=== PATIENT | male | born 1940 | race American Indian/Alaskan Native ===

== ENCOUNTER 2018-05-06 11:41 | Inpatient (IN) | payer MEDICARE, OTHER ==
[~2018-05-06] VITALS: Ht 175.3 cm; Wt 92.3 kg
[2018-05-06] MEDS ORDERED: normal saline 1000ML IV soln IVB ONE (12:00)
[2018-05-06 12:20] LABS: CLARITY,URINE CLOUDY (Clear); GLUCOSE, URINE NEGATIVE (Neg); KETONES,URINE 15 mg/dl (Neg); LEUKOCYTE ESTERASE ,URINE MODERATE (Neg); NITRITES, URINE NEGATIVE (Neg); OCCULT BLOOD,URINE SMALL (Neg); PROTEIN,URINE 100 mg/dl (Neg)
[2018-05-06 12:32] LABS: URINE AMPHETAMINE SCREEN NEGATIVE (Neg); URINE BARBITUATE SCREEN NEGATIVE (Neg); URINE BENZODIAZEPINES SCREEN POSITIVE (Neg); URINE CANNABINOID SCREEN NEGATIVE (Neg); URINE COCAINE SCREEN NEGATIVE (Neg); URINE METHADONE SCREEN NEGATIVE (Neg); URINE OPIATE SCREEN POSITIVE (Neg); URINE PHENCYCLIDINE SCREEN NEGATIVE (Neg)
[2018-05-06 12:43] LABS: BASOPHILS # (AUTO) 0.1 X10'3 (0-0.2); BASOPHILS % (AUTO) 0.5 % (0-1); EOSINOPHILS % (AUTO) 0.3 % (0-6); HEMATOCRIT 48.3 % (42.0-52.0); HEMOGLOBIN 16.5 g/dl (14.0-17.9); LYMPHOCYTES # (AUTO) 1.1 X10'3 (1.1-4.8); LYMPHOCYTES % (AUTO) 7.8 % (21-51); MEAN CORPUSCULAR HEMOGLOBIN 32.3 PG (27.0-31.0); MEAN CORPUSCULAR HGB CONC 34.1 % (33.0-36.5); MEAN CORPUSCULAR VOLUME 94.8 FL (78-98); MONOCYTES # (AUTO) 0.7 X10'3 (0-0.9); NEUTROPHILS # (AUTO) 11.7 X10'3 (1.8-7.7); NEUTROPHILS % (AUTO) 86.4 % (42-75); PLATELET COUNT 319 X10'3 (140-440); RED CELL DISTRIBUTION WIDTH 14.7 % (11.5-14.5); WHITE BLOOD COUNT 13.6 X10'3 (4.5-11.0)
[2018-05-06 12:57] LABS: UA COLLECTION TYPE FOLEY CATH
[2018-05-06 12:58] LABS: INR 1.2 INR; PARTIAL THROMBOPLASTIN TIME 26 SECONDS (22-32)
[2018-05-06 12:58] LABS: COLOR,URINE DARK YELLOW (Yellow)
[2018-05-06 13:07] LABS: AMMONIA < 10 UMOL/L (11-32); LACTIC SEPSIS 2.3 MMOL/L (0.4-2.0)
[2018-05-06] MEDS ORDERED: naloxone 2mg/2ml inj IV STA (13:08)
[2018-05-06 13:12] LABS: ALANINE AMINOTRANSFERASE 45 U/L (12-78); ALBUMIN 3.3 G/DL (3.4-5.0); ALBUMIN/GLOBULIN RATIO 0.8 (1.1-1.5); ALKALINE PHOSPHATASE 62 IU/L (46-116); ANION GAP 10 (8-16); ASPARTATE AMINO TRANSFERASE 52 U/L (10-37); BILIRUBIN,TOTAL 1.2 MG/DL (0.1-1.0); BLOOD UREA NITROGEN 21 MG/DL (7-18); BUN/CREATININE RATIO 19.8 (5.4-32.0); CALCIUM 9.2 MG/DL (8.5-10.1); CHLORIDE 105 MMOL/L (99-107); CREATINE KINASE 845 U/L (39-308); CREATININE 1.06 MG/DL (0.60-1.10); ETHANOL < 0.010 GM/DL (0.0-0.010); GLUCOSE 129 MG/DL (70-104); SODIUM 143 MMOL/L (135-145); TOTAL PROTEIN 7.2 G/DL (6.4-8.2); eGFR 67 ML/MIN
[2018-05-06 13:13] LABS: ACETAMINOPHEN < 2.0 UG/ML (10-30)
[2018-05-06 13:14] LABS: POTASSIUM 2.7 MMOL/L (3.5-5.1)
[2018-05-06 13:25] LABS: BACTERIA,URINE 4+ /HPF (Neg)
[2018-05-06 13:26] LABS: SQUAMOUS EPITHELIAL CELL,UR NONE SEEN /LPF (FEW)
[2018-05-06] MEDS: potassium 10mEq/100ml NS w/LIDOcaine (10mg/bag) IV SCH ×2 (13:49→14:49)
[2018-05-06] MEDS ORDERED: CefTRIAXone 2gm/D5W 50ml 50 ML IV ONE (14:35)
[2018-05-06] MEDS ORDERED: labetalol 20mg/4ml (5mg/ml) syringe IV PRN (14:40)
[2018-05-06] MEDS ORDERED: cloNIDine 0.2 MG/24 HR patch (7 day patch) TD ONE (15:30)
[2018-05-06] MEDS ORDERED: CLON0.1T PO (16:26)
[2018-05-06] MEDS ORDERED: GABA-530 PO (16:26)
[2018-05-06] MEDS ORDERED: HYDR25TA4 PO (16:26)
[2018-05-06 16:27] LABS: ALANINE AMINOTRANSFERASE 52 U/L (12-78); ALBUMIN 2.7 G/DL (3.4-5.0); ALBUMIN/GLOBULIN RATIO 0.8 (1.1-1.5); ALKALINE PHOSPHATASE 49 IU/L (46-116); ANION GAP 8 (8-16); ASPARTATE AMINO TRANSFERASE 55 U/L (10-37); BILIRUBIN,TOTAL 0.9 MG/DL (0.1-1.0); BLOOD UREA NITROGEN 17 MG/DL (7-18); BUN/CREATININE RATIO 20.2 (5.4-32.0); CALCIUM 8.1 MG/DL (8.5-10.1); CHLORIDE 108 MMOL/L (99-107); CREATINE KINASE 836 U/L (39-308); CREATININE 0.84 MG/DL (0.60-1.10); GLUCOSE 125 MG/DL (70-104); SODIUM 143 MMOL/L (135-145); TOTAL CARBON DIOXIDE 26.8 MMOL/L (24-32); TOTAL PROTEIN 6.3 G/DL (6.4-8.2); eGFR 88 ML/MIN
[2018-05-06 16:30] LABS: POTASSIUM 2.8 MMOL/L (3.5-5.1)
[2018-05-06] MEDS ORDERED: SULI150T50 PO (16:35)
[2018-05-06] MEDS ORDERED: CHOL2000 PO (16:35)
[2018-05-06] MEDS ORDERED: POTA10CA44 PO (16:35)
[2018-05-06] MEDS ORDERED: DOCU-20 PO (16:35)
[2018-05-06] MEDS ORDERED: RAMI10CA69 PO (16:36)
[2018-05-06] MEDS ORDERED: MAGN500T2 PO (16:38)
[2018-05-06] MEDS ORDERED: KETO60VI28 IM (16:39)
[2018-05-06] MEDS ORDERED: KETO30VI IM (16:43)
[2018-05-06] MEDS ORDERED: mag hydrox/Alum hydrox/simeth 30ml oral suspension PO PRN (17:10)
[2018-05-06] MEDS ORDERED: magnesium hydroxide 30ml (MOM) UD suspension PO PRN (17:10)
[2018-05-06] MEDS ORDERED: ondansetron/PF 4mg/2ml inj IV PRN (17:10)
[2018-05-06] MEDS: normal saline 1000ml 1,000 ML IV SCH (17:24)
[2018-05-06] MEDS ORDERED: potassium Cl 20 mEq SR tablet PO PRN (17:40)
[2018-05-06] MEDS ORDERED: potassium Cl 40MEQ/NS 500ml 500 ML IV PRN ×2 (17:40)
[2018-05-06] MEDS: cloNIDine 0.1 mg tablet PO SCH (20:00)
[2018-05-06] MEDS: docusate sod 100mg capsule PO SCH (20:13)
[2018-05-06] MEDS: magnesium oxide 400mg tablet PO SCH (20:13)
[2018-05-06] MEDS: heparin, porcine 5000 units/ml vial SQ SCH (20:14)
[2018-05-06 20:30] VITALS: BP 191/92
[2018-05-06] MEDS: hydrALAZINE 20mg/ml inj. IV PRN (20:55)
[2018-05-06] MEDS ORDERED: MAGNESIUM OXIDE PO SCH (21:00)
[2018-05-06 23:00] VITALS: BP 189/82
[2018-05-07 00:01] VITALS: BP 137/77
[2018-05-07] MEDS: normal saline 1000ml 1,000 ML IV SCH ×4 (00:56→19:34)
[2018-05-07 03:00] VITALS: BP 138/71
[2018-05-07 05:17] LABS: BASOPHILS % (AUTO) 0.4 % (0-1); EOSINOPHILS # (AUTO) 0.2 X10'3 (0-0.9); EOSINOPHILS % (AUTO) 2.1 % (0-6); HEMATOCRIT 42.1 % (42.0-52.0); HEMOGLOBIN 14.5 g/dl (14.0-17.9); LYMPHOCYTES # (AUTO) 0.8 X10'3 (1.1-4.8); LYMPHOCYTES % (AUTO) 7.2 % (21-51); MEAN CORPUSCULAR HEMOGLOBIN 32.5 PG (27.0-31.0); MEAN CORPUSCULAR HGB CONC 34.4 % (33.0-36.5); MEAN CORPUSCULAR VOLUME 94.6 FL (78-98); MEAN PLATELET VOLUME 8.4 FL (7.4-10.4); MONOCYTES # (AUTO) 0.5 X10'3 (0-0.9); MONOCYTES % (AUTO) 4.2 % (2-12); NEUTROPHILS # (AUTO) 9.8 X10'3 (1.8-7.7); NEUTROPHILS % (AUTO) 86.1 % (42-75); PLATELET COUNT 282 X10'3 (140-440); RED BLOOD COUNT 4.45 X10'6 (4.70-6.10); RED CELL DISTRIBUTION WIDTH 14.6 % (11.5-14.5); WHITE BLOOD COUNT 11.3 X10'3 (4.5-11.0)
[2018-05-07 05:40] LABS: ALBUMIN 2.5 G/DL (3.4-5.0); ANION GAP 11 (8-16); BLOOD UREA NITROGEN 14 MG/DL (7-18); BUN/CREATININE RATIO 18.9 (5.4-32.0); CHLORIDE 109 MMOL/L (99-107); CREATININE 0.74 MG/DL (0.60-1.10); GLUCOSE 111 MG/DL (70-104); SODIUM 145 MMOL/L (135-145); TOTAL CARBON DIOXIDE 24.8 MMOL/L (24-32); eGFR > 90 ML/MIN
[2018-05-07 06:00] VITALS: BP 136/71
[2018-05-07 07:41] LABS: POTASSIUM 2.4 MMOL/L (3.5-5.1)
[2018-05-07] MEDS ORDERED: CHOLECALCIFEROL PO SCH (08:00)
[2018-05-07] MEDS ORDERED: RAMIPRIL PO SCH (08:00)
[2018-05-07] MEDS: HYDROchlorothiazide 25mg tablet PO SCH (08:00)
[2018-05-07] MEDS: potassium chloride 10mEq ER tablet PO SCH (08:00)
[2018-05-07] MEDS: docusate sod 100mg capsule PO SCH ×2 (09:00→20:31)
[2018-05-07] MEDS: lisinopril 20mg tablet PO SCH (09:01)
[2018-05-07] MEDS: vitamin D (cholecalciferol) 1,000 unit tablet PO SCH (09:01)
[2018-05-07] MEDS: heparin, porcine 5000 units/ml vial SQ SCH ×2 (09:02→20:31)
[2018-05-07] MEDS: cloNIDine 0.1 mg tablet PO SCH ×2 (09:02→20:00)
[2018-05-07] MEDS: cefTRIAXone 1g/NS 100ml IVPB 100 ML IV SCH (09:20)
[2018-05-07] MEDS: LIDOcaine 1% 30ml vial 5 ML in potassium Cl 40MEQ/NS 500ml 500 ML IV PRN ×2 (10:00→16:46)
[2018-05-07 11:00] VITALS: BP 129/63
[2018-05-07] MEDS: vancomycin inj 1,250 MG in normal saline 250ml IV soln 250 ML IV SCH (14:18)
[2018-05-07 15:00] VITALS: BP 152/62
[2018-05-07 15:14] LABS: HEMOGLOBIN A1C 5.9 % (4.5-6.2)
[2018-05-07] MEDS ORDERED: pneumococcal 23-VAL P-sac vacc 25 mcg/0.5ml vial IMVAC ONE (16:20)
[2018-05-07] MEDS: emollient combination-Eucerin 250 ML LOTION TP SCH (16:55)
[2018-05-07] MEDS: magnesium oxide 400mg tablet PO SCH (20:31)
[2018-05-07 22:00] VITALS: BP 163/71
[2018-05-08] VITALS (7 sets, daily range): BP systolic 125–178; BP diastolic 66–82
[2018-05-08] MEDS: vancomycin inj 1,250 MG in normal saline 250ml IV soln 250 ML IV SCH ×2 (01:00→12:39)
[2018-05-08] MEDS: normal saline 1000ml 1,000 ML IV SCH ×3 (03:15→20:30)
[2018-05-08] MEDS: acetaminophen 325mg tablet PO PRN (03:23)
[2018-05-08 05:39] LABS: BASOPHILS # (AUTO) 0.1 X10'3 (0-0.2); BASOPHILS % (AUTO) 0.7 % (0-1); EOSINOPHILS # (AUTO) 0.4 X10'3 (0-0.9); EOSINOPHILS % (AUTO) 5.2 % (0-6); LYMPHOCYTES # (AUTO) 1.5 X10'3 (1.1-4.8); LYMPHOCYTES % (AUTO) 17.2 % (21-51); MEAN CORPUSCULAR HEMOGLOBIN 32.5 PG (27.0-31.0); MEAN CORPUSCULAR HGB CONC 34.3 % (33.0-36.5); MEAN PLATELET VOLUME 8.4 FL (7.4-10.4); MONOCYTES # (AUTO) 0.6 X10'3 (0-0.9); MONOCYTES % (AUTO) 6.5 % (2-12); NEUTROPHILS # (AUTO) 6.1 X10'3 (1.8-7.7); NEUTROPHILS % (AUTO) 70.4 % (42-75); PLATELET COUNT 217 X10'3 (140-440); RED CELL DISTRIBUTION WIDTH 14.6 % (11.5-14.5); WHITE BLOOD COUNT 8.6 X10'3 (4.5-11.0)
[2018-05-08 05:50] LABS: ALBUMIN 2.2 G/DL (3.4-5.0); ANION GAP 7 (8-16); BLOOD UREA NITROGEN 13 MG/DL (7-18); BUN/CREATININE RATIO 18.1 (5.4-32.0); CALCIUM 8.2 MG/DL (8.5-10.1); CHLORIDE 109 MMOL/L (99-107); CREATININE 0.72 MG/DL (0.60-1.10); GLUCOSE 82 MG/DL (70-104); SODIUM 141 MMOL/L (135-145); TOTAL CARBON DIOXIDE 25.4 MMOL/L (24-32); eGFR > 90 ML/MIN
[2018-05-08] MEDS: emollient combination-Eucerin 250 ML LOTION TP SCH (08:00)
[2018-05-08] MEDS: potassium chloride 10mEq ER tablet PO SCH (08:12)
[2018-05-08] MEDS: docusate sod 100mg capsule PO SCH ×2 (08:12→20:31)
[2018-05-08] MEDS: potassium Cl 20 mEq SR tablet PO PRN ×3 (08:12→16:39)
[2018-05-08] MEDS: HYDROchlorothiazide 25mg tablet PO SCH (08:13)
[2018-05-08] MEDS: cloNIDine 0.1 mg tablet PO SCH (08:13)
[2018-05-08] MEDS: lisinopril 20mg tablet PO SCH (08:13)
[2018-05-08] MEDS: cefTRIAXone 1g/NS 100ml IVPB 100 ML IV SCH (08:14)
[2018-05-08] MEDS: vitamin D (cholecalciferol) 1,000 unit tablet PO SCH (08:14)
[2018-05-08] MEDS: heparin, porcine 5000 units/ml vial SQ SCH ×2 (08:16→20:31)
[2018-05-08] MEDS: magnesium oxide 400mg tablet PO SCH (20:31)
[2018-05-08] MEDS: hydrALAZINE 20mg/ml inj. IV PRN (22:35)
[2018-05-09] MEDS ORDERED: VANCOMYCIN LEVEL IV ONE (00:30)
[2018-05-09] MEDS: vancomycin inj 1,250 MG in normal saline 250ml IV soln 250 ML IV SCH (01:12)
[2018-05-09 01:15] LABS: ALBUMIN 2.4 G/DL (3.4-5.0); ANION GAP 9 (8-16); BASOPHILS # (AUTO) 0.1 X10'3 (0-0.2); BASOPHILS % (AUTO) 0.8 % (0-1); BLOOD UREA NITROGEN 10 MG/DL (7-18); BUN/CREATININE RATIO 16.1 (5.4-32.0); CALCIUM 8.2 MG/DL (8.5-10.1); CHLORIDE 106 MMOL/L (99-107); CREATININE 0.62 MG/DL (0.60-1.10); EOSINOPHILS # (AUTO) 0.3 X10'3 (0-0.9); EOSINOPHILS % (AUTO) 3.6 % (0-6); GLUCOSE 89 MG/DL (70-104); HEMATOCRIT 41.9 % (42.0-52.0); HEMOGLOBIN 14.2 g/dl (14.0-17.9); LYMPHOCYTES # (AUTO) 1.5 X10'3 (1.1-4.8); LYMPHOCYTES % (AUTO) 17.9 % (21-51); MEAN CORPUSCULAR HEMOGLOBIN 32.5 PG (27.0-31.0); MEAN CORPUSCULAR HGB CONC 33.8 % (33.0-36.5); MEAN CORPUSCULAR VOLUME 96.1 FL (78-98); MEAN PLATELET VOLUME 9.1 FL (7.4-10.4); MONOCYTES # (AUTO) 0.5 X10'3 (0-0.9); MONOCYTES % (AUTO) 5.7 % (2-12); NEUTROPHILS # (AUTO) 6.2 X10'3 (1.8-7.7); PLATELET COUNT 228 X10'3 (140-440); POTASSIUM 3.8 MMOL/L (3.5-5.1); RED BLOOD COUNT 4.36 X10'6 (4.70-6.10); RED CELL DISTRIBUTION WIDTH 13.8 % (11.5-14.5); SODIUM 139 MMOL/L (135-145); TOTAL CARBON DIOXIDE 24.1 MMOL/L (24-32); VANCOMYCIN,TROUGH 15.3 UG/ML (6.0-14.0); WHITE BLOOD COUNT 8.6 X10'3 (4.5-11.0); eGFR > 90 ML/MIN
[2018-05-09 01:49] LABS: MAGNESIUM 1.3 MG/DL (1.5-2.4)
[2018-05-09] MEDS ORDERED: magnesium 4gm in 100ml NS 100 ML IV PRN (02:05)
[2018-05-09] MEDS: magnesium Cl slow-release 64mg tablet PO PRN ×2 (02:48→13:30)
[2018-05-09 03:00] VITALS: BP 134/68
[2018-05-09] MEDS: normal saline 1000ml 1,000 ML IV SCH ×3 (05:26→20:43)
[2018-05-09 07:10] VITALS: BP 148/73
[2018-05-09] MEDS: cefTRIAXone 1g/NS 100ml IVPB 100 ML IV SCH (08:40)
[2018-05-09] MEDS: lisinopril 20mg tablet PO SCH (08:40)
[2018-05-09] MEDS: potassium chloride 10mEq ER tablet PO SCH (08:40)
[2018-05-09] MEDS: docusate sod 100mg capsule PO SCH ×2 (08:40→20:44)
[2018-05-09] MEDS: emollient combination-Eucerin 250 ML LOTION TP SCH (08:41)
[2018-05-09] MEDS: heparin, porcine 5000 units/ml vial SQ SCH ×2 (08:42→20:45)
[2018-05-09 12:56] VITALS: BP 167/76
[2018-05-09] MEDS: hydrALAZINE 20mg/ml inj. IV PRN (13:30)
[2018-05-09 15:00] VITALS: BP 152/76
[2018-05-09] MEDS: penicillin G potassium inj 4,000,000 UNIT in normal saline 100ml IV soln 100 ML IV SCH ×2 (17:16→20:43)
[2018-05-09 18:00] VITALS: BP 172/90
[2018-05-09] MEDS: lactobacillus rhamnosus 10,000 MMU CELLS/CAPSULE PO SCH (20:44)
[2018-05-09] MEDS: magnesium oxide 400mg tablet PO SCH (20:44)
[2018-05-09 22:00] VITALS: BP 175/80
[2018-05-10] MEDS: penicillin G potassium inj 4,000,000 UNIT in normal saline 100ml IV soln 100 ML IV SCH ×6 (00:58→19:24)
[2018-05-10 02:00] VITALS: BP 171/83
[2018-05-10] MEDS: hydrALAZINE 20mg/ml inj. IV PRN (02:49)
[2018-05-10 06:00] VITALS: BP 165/88
[2018-05-10 06:34] LABS: ALBUMIN 2.7 G/DL (3.4-5.0); ANION GAP 11 (8-16); BLOOD UREA NITROGEN 6 MG/DL (7-18); BUN/CREATININE RATIO 9.1 (5.4-32.0); CALCIUM 8.7 MG/DL (8.5-10.1); CHLORIDE 104 MMOL/L (99-107); CREATININE 0.66 MG/DL (0.60-1.10); GLUCOSE 88 MG/DL (70-104); POTASSIUM 3.4 MMOL/L (3.5-5.1); SODIUM 139 MMOL/L (135-145); eGFR > 90 ML/MIN
[2018-05-10 06:39] LABS: BASOPHILS % (AUTO) 0.4 % (0-1); EOSINOPHILS # (AUTO) 0.2 X10'3 (0-0.9); EOSINOPHILS % (AUTO) 2.8 % (0-6); HEMATOCRIT 41.8 % (42.0-52.0); HEMOGLOBIN 14.3 g/dl (14.0-17.9); LYMPHOCYTES # (AUTO) 1.4 X10'3 (1.1-4.8); LYMPHOCYTES % (AUTO) 16.5 % (21-51); MEAN CORPUSCULAR HEMOGLOBIN 32.4 PG (27.0-31.0); MEAN CORPUSCULAR HGB CONC 34.2 % (33.0-36.5); MEAN CORPUSCULAR VOLUME 94.6 FL (78-98); MEAN PLATELET VOLUME 9.3 FL (7.4-10.4); MONOCYTES # (AUTO) 0.7 X10'3 (0-0.9); MONOCYTES % (AUTO) 8.5 % (2-12); NEUTROPHILS # (AUTO) 6.2 X10'3 (1.8-7.7); NEUTROPHILS % (AUTO) 71.8 % (42-75); PLATELET COUNT 241 X10'3 (140-440); RED BLOOD COUNT 4.42 X10'6 (4.70-6.10); RED CELL DISTRIBUTION WIDTH 14.1 % (11.5-14.5); WHITE BLOOD COUNT 8.6 X10'3 (4.5-11.0)
[2018-05-10 07:53] LABS: MAGNESIUM 1.3 MG/DL (1.5-2.4)
[2018-05-10] MEDS: emollient combination-Eucerin 250 ML LOTION TP SCH (08:00)
[2018-05-10] MEDS: docusate sod 100mg capsule PO SCH ×2 (08:00→19:30)
[2018-05-10] MEDS ORDERED: potassium Cl 20 mEq SR tablet PO PRN (09:10)
[2018-05-10] MEDS ORDERED: potassium Cl 40MEQ/NS 500ml 500 ML IV PRN ×2 (09:10)
[2018-05-10] MEDS: lactobacillus rhamnosus 10,000 MMU CELLS/CAPSULE PO SCH ×2 (09:10→19:29)
[2018-05-10] MEDS: lisinopril 20mg tablet PO SCH (09:10)
[2018-05-10] MEDS: potassium chloride 10mEq ER tablet PO SCH (09:10)
[2018-05-10] MEDS: magnesium Cl slow-release 64mg tablet PO PRN (09:10)
[2018-05-10] MEDS: potassium Cl 20 mEq SR tablet PO PRN ×2 (09:11→19:28)
[2018-05-10] MEDS: heparin, porcine 5000 units/ml vial SQ SCH ×2 (09:14→19:35)
[2018-05-10 11:00] VITALS: BP 151/80
[2018-05-10] MEDS: normal saline 1000ml 1,000 ML IV SCH ×2 (11:26→21:26)
[2018-05-10 15:00] VITALS: BP 154/86
[2018-05-10 19:00] VITALS: BP 172/89
[2018-05-10] MEDS: magnesium oxide 400mg tablet PO SCH (19:29)
[2018-05-10 23:00] VITALS: BP 172/89
[2018-05-11] VITALS (7 sets, daily range): BP systolic 145–186; BP diastolic 75–96
[2018-05-11] MEDS: penicillin G potassium inj 4,000,000 UNIT in normal saline 100ml IV soln 100 ML IV SCH ×6 (00:11→21:18)
[2018-05-11] MEDS: potassium Cl 20 mEq SR tablet PO PRN (00:12)
[2018-05-11 06:29] LABS: BASOPHILS % (AUTO) 0.6 % (0-1); EOSINOPHILS # (AUTO) 0.4 X10'3 (0-0.9); EOSINOPHILS % (AUTO) 5.2 % (0-6); HEMOGLOBIN 14.1 g/dl (14.0-17.9); LYMPHOCYTES # (AUTO) 1.7 X10'3 (1.1-4.8); MEAN CORPUSCULAR HEMOGLOBIN 32.7 PG (27.0-31.0); MEAN CORPUSCULAR HGB CONC 34.4 % (33.0-36.5); MEAN CORPUSCULAR VOLUME 94.9 FL (78-98); MEAN PLATELET VOLUME 9.1 FL (7.4-10.4); MONOCYTES # (AUTO) 0.7 X10'3 (0-0.9); MONOCYTES % (AUTO) 8.7 % (2-12); NEUTROPHILS # (AUTO) 5.5 X10'3 (1.8-7.7); NEUTROPHILS % (AUTO) 65.5 % (42-75); PLATELET COUNT 243 X10'3 (140-440); RED BLOOD COUNT 4.32 X10'6 (4.70-6.10); RED CELL DISTRIBUTION WIDTH 14.2 % (11.5-14.5); WHITE BLOOD COUNT 8.3 X10'3 (4.5-11.0)
[2018-05-11 07:08] LABS: ALBUMIN 2.7 G/DL (3.4-5.0); ANION GAP 9 (8-16); BLOOD UREA NITROGEN 6 MG/DL (7-18); BUN/CREATININE RATIO 9.4 (5.4-32.0); CALCIUM 8.8 MG/DL (8.5-10.1); CHLORIDE 106 MMOL/L (99-107); CREATININE 0.64 MG/DL (0.60-1.10); GLUCOSE 83 MG/DL (70-104); POTASSIUM 3.8 MMOL/L (3.5-5.1); SODIUM 139 MMOL/L (135-145); TOTAL CARBON DIOXIDE 24.1 MMOL/L (24-32); eGFR > 90 ML/MIN
[2018-05-11] MEDS: normal saline 1000ml 1,000 ML IV SCH ×2 (07:27→20:39)
[2018-05-11] MEDS: lisinopril 20mg tablet PO SCH (07:31)
[2018-05-11] MEDS: acetaminophen 325mg tablet PO PRN (07:32)
[2018-05-11] MEDS: heparin, porcine 5000 units/ml vial SQ SCH ×2 (07:33→21:23)
[2018-05-11] MEDS: lactobacillus rhamnosus 10,000 MMU CELLS/CAPSULE PO SCH ×2 (07:34→21:22)
[2018-05-11] MEDS: emollient combination-Eucerin 250 ML LOTION TP SCH (07:34)
[2018-05-11] MEDS: docusate sod 100mg capsule PO SCH ×2 (07:35→21:22)
[2018-05-11] MEDS: potassium chloride 10mEq ER tablet PO SCH (10:21)
[2018-05-11] MEDS: HYDROcodone/acetaminophen 5mg/325mg tablet PO PRN ×2 (10:21→21:21)
[2018-05-11] MEDS: hydrALAZINE 20mg/ml inj. IV PRN (13:02)
[2018-05-11] MEDS: HYDROchlorothiazide 12.5mg capsule PO SCH (15:14)
[2018-05-11] MEDS: lactose-reduced food (Ensure Enlive) - 237ml bottle PO SCH (18:00)
[2018-05-11] MEDS: magnesium oxide 400mg tablet PO SCH (21:21)
[2018-05-11] MEDS: hydrALAZINE 25 MG tablet PO SCH (21:22)
[2018-05-12] MEDS: penicillin G potassium inj 4,000,000 UNIT in normal saline 100ml IV soln 100 ML IV SCH ×6 (00:39→19:31)
[2018-05-12 03:00] VITALS: BP 162/82
[2018-05-12] MEDS: hydrALAZINE 20mg/ml inj. IV PRN ×2 (04:18→22:47)
[2018-05-12 06:00] VITALS: BP 157/92
[2018-05-12 06:05] LABS: ALBUMIN 3.1 G/DL (3.4-5.0); ANION GAP 11 (8-16); BLOOD UREA NITROGEN 7 MG/DL (7-18); BUN/CREATININE RATIO 10.1 (5.4-32.0); CALCIUM 9.4 MG/DL (8.5-10.1); CHLORIDE 103 MMOL/L (99-107); CREATININE 0.69 MG/DL (0.60-1.10); GLUCOSE 90 MG/DL (70-104); MAGNESIUM 1.4 MG/DL (1.5-2.4); SODIUM 137 MMOL/L (135-145); TOTAL CARBON DIOXIDE 22.6 MMOL/L (24-32); eGFR > 90 ML/MIN
[2018-05-12] MEDS: lactobacillus rhamnosus 10,000 MMU CELLS/CAPSULE PO SCH ×2 (07:46→19:24)
[2018-05-12] MEDS: hydrALAZINE 25 MG tablet PO SCH ×2 (07:46→20:14)
[2018-05-12] MEDS: lisinopril 20mg tablet PO SCH (07:46)
[2018-05-12] MEDS: heparin, porcine 5000 units/ml vial SQ SCH ×2 (07:47→19:28)
[2018-05-12] MEDS: docusate sod 100mg capsule PO SCH ×2 (07:47→19:24)
[2018-05-12] MEDS: HYDROchlorothiazide 12.5mg capsule PO SCH (07:47)
[2018-05-12] MEDS: potassium chloride 10mEq ER tablet PO SCH (07:47)
[2018-05-12] MEDS: emollient combination-Eucerin 250 ML LOTION TP SCH (07:48)
[2018-05-12] MEDS: lactose-reduced food (Ensure Enlive) - 237ml bottle PO SCH ×3 (08:00→17:54)
[2018-05-12] MEDS ORDERED: magnesium Cl slow-release 64mg tablet PO PRN (08:40)
[2018-05-12] MEDS ORDERED: magnesium 4gm in 100ml NS 100 ML IV PRN (08:40)
[2018-05-12] MEDS: HYDROcodone/acetaminophen 5mg/325mg tablet PO PRN (08:47)
[2018-05-12 11:00] VITALS: BP 134/80
[2018-05-12 15:00] VITALS: BP 157/83
[2018-05-12] MEDS: acetaminophen 325mg tablet PO PRN (15:36)
[2018-05-12] MEDS: normal saline 1000ml 1,000 ML IV SCH (16:39)
[2018-05-12] MEDS ORDERED: amLODIPine 5mg tablet PO ONE (18:25)
[2018-05-12 19:00] VITALS: BP 154/95
[2018-05-12] MEDS: magnesium oxide 400mg tablet PO SCH (20:16)
[2018-05-12 23:00] VITALS: BP 171/86
[2018-05-13] MEDS: HYDROcodone/acetaminophen 5mg/325mg tablet PO PRN ×3 (00:24→20:25)
[2018-05-13] MEDS: penicillin G potassium inj 4,000,000 UNIT in normal saline 100ml IV soln 100 ML IV SCH ×6 (00:24→20:17)
[2018-05-13 03:00] VITALS: BP 151/90
[2018-05-13 05:35] LABS: CREATINE KINASE 97 U/L (39-308)
[2018-05-13 06:00] VITALS: BP 127/92
[2018-05-13] MEDS: docusate sod 100mg capsule PO SCH ×3 (08:00→20:17)
[2018-05-13] MEDS: HYDROchlorothiazide 12.5mg capsule PO SCH ×2 (08:00→08:30)
[2018-05-13] MEDS: potassium chloride 10mEq ER tablet PO SCH ×2 (08:00→08:30)
[2018-05-13] MEDS: lactobacillus rhamnosus 10,000 MMU CELLS/CAPSULE PO SCH ×3 (08:00→20:17)
[2018-05-13] MEDS: hydrALAZINE 25 MG tablet PO SCH ×3 (08:00→20:17)
[2018-05-13] MEDS: amLODIPine 5mg tablet PO SCH ×2 (08:00→08:30)
[2018-05-13] MEDS: lisinopril 20mg tablet PO SCH ×2 (08:00→08:30)
[2018-05-13 08:11] LABS: BASOPHILS # (AUTO) 0.1 X10'3 (0-0.2); BASOPHILS % (AUTO) 0.9 % (0-1); EOSINOPHILS # (AUTO) 0.3 X10'3 (0-0.9); EOSINOPHILS % (AUTO) 4.3 % (0-6); HEMATOCRIT 42.8 % (42.0-52.0); HEMOGLOBIN 14.6 g/dl (14.0-17.9); LYMPHOCYTES # (AUTO) 1.7 X10'3 (1.1-4.8); LYMPHOCYTES % (AUTO) 22.7 % (21-51); MEAN CORPUSCULAR HEMOGLOBIN 32.4 PG (27.0-31.0); MEAN CORPUSCULAR VOLUME 95.2 FL (78-98); MEAN PLATELET VOLUME 9.1 FL (7.4-10.4); MONOCYTES # (AUTO) 0.7 X10'3 (0-0.9); NEUTROPHILS # (AUTO) 4.6 X10'3 (1.8-7.7); NEUTROPHILS % (AUTO) 63.1 % (42-75); PLATELET COUNT 266 X10'3 (140-440); RED CELL DISTRIBUTION WIDTH 14.7 % (11.5-14.5); WHITE BLOOD COUNT 7.3 X10'3 (4.5-11.0)
[2018-05-13 08:27] LABS: ALANINE AMINOTRANSFERASE 75 U/L (12-78); ALBUMIN 2.9 G/DL (3.4-5.0); ALBUMIN/GLOBULIN RATIO 0.9 (1.1-1.5); ALKALINE PHOSPHATASE 53 IU/L (46-116); ANION GAP 10 (8-16); ASPARTATE AMINO TRANSFERASE 44 U/L (10-37); BILIRUBIN,TOTAL 0.8 MG/DL (0.1-1.0); BLOOD UREA NITROGEN 6 MG/DL (7-18); BUN/CREATININE RATIO 8.6 (5.4-32.0); CHLORIDE 105 MMOL/L (99-107); GLUCOSE 103 MG/DL (70-104); POTASSIUM 3.5 MMOL/L (3.5-5.1); SODIUM 141 MMOL/L (135-145); TOTAL CARBON DIOXIDE 26.3 MMOL/L (24-32); TOTAL PROTEIN 6.3 G/DL (6.4-8.2); eGFR > 90 ML/MIN
[2018-05-13] MEDS: heparin, porcine 5000 units/ml vial SQ SCH ×2 (08:31→20:20)
[2018-05-13] MEDS: emollient combination-Eucerin 250 ML LOTION TP SCH (08:32)
[2018-05-13] MEDS: lactose-reduced food (Ensure Enlive) - 237ml bottle PO SCH ×2 (08:32→09:32)
[2018-05-13 11:00] VITALS: BP 142/78
[2018-05-13] MEDS: normal saline 1000ml 1,000 ML IV SCH (13:22)
[2018-05-13 15:00] VITALS: BP 115/80
[2018-05-13 19:00] VITALS: BP 133/84
[2018-05-13] MEDS: magnesium oxide 400mg tablet PO SCH (20:17)
[2018-05-13 23:00] VITALS: BP 137/83
[2018-05-14] MEDS: penicillin G potassium inj 4,000,000 UNIT in normal saline 100ml IV soln 100 ML IV SCH ×6 (02:27→20:24)
[2018-05-14] MEDS: HYDROcodone/acetaminophen 5mg/325mg tablet PO PRN ×4 (02:29→20:25)
[2018-05-14 03:00] VITALS: BP 130/76
[2018-05-14 06:00] VITALS: BP 140/75
[2018-05-14] MEDS: lactose-reduced food (Ensure Enlive) - 237ml bottle PO SCH ×3 (08:00→18:00)
[2018-05-14] MEDS: hydrALAZINE 25 MG tablet PO SCH ×2 (08:00→20:24)
[2018-05-14] MEDS: HYDROchlorothiazide 12.5mg capsule PO SCH (08:29)
[2018-05-14] MEDS: amLODIPine 5mg tablet PO SCH (08:29)
[2018-05-14] MEDS: potassium chloride 10mEq ER tablet PO SCH (08:29)
[2018-05-14] MEDS: lisinopril 20mg tablet PO SCH (08:29)
[2018-05-14] MEDS: docusate sod 100mg capsule PO SCH ×2 (08:30→20:24)
[2018-05-14] MEDS: lactobacillus rhamnosus 10,000 MMU CELLS/CAPSULE PO SCH ×2 (08:30→20:24)
[2018-05-14] MEDS: heparin, porcine 5000 units/ml vial SQ SCH ×2 (08:34→20:23)
[2018-05-14] MEDS: emollient combination-Eucerin 250 ML LOTION TP SCH (08:35)
[2018-05-14] MEDS: normal saline 1000ml 1,000 ML IV SCH (08:39)
[2018-05-14 11:00] VITALS: BP 112/61
[2018-05-14 15:00] VITALS: BP 133/74
[2018-05-14 18:00] VITALS: BP 151/92
[2018-05-14] MEDS: magnesium oxide 400mg tablet PO SCH (20:24)
[2018-05-14 22:00] VITALS: BP 158/88
[2018-05-15] MEDS: penicillin G potassium inj 4,000,000 UNIT in normal saline 100ml IV soln 100 ML IV SCH ×6 (00:11→20:41)
[2018-05-15 02:00] VITALS: BP 158/95
[2018-05-15] MEDS: HYDROcodone/acetaminophen 5mg/325mg tablet PO PRN ×4 (02:03→20:45)
[2018-05-15] MEDS: normal saline 1000ml 1,000 ML IV SCH (04:20)
[2018-05-15 06:00] VITALS: BP 167/101
[2018-05-15] MEDS: docusate sod 100mg capsule PO SCH ×2 (07:38→20:46)
[2018-05-15] MEDS: lisinopril 20mg tablet PO SCH (07:39)
[2018-05-15] MEDS: potassium chloride 10mEq ER tablet PO SCH (07:39)
[2018-05-15] MEDS: lactobacillus rhamnosus 10,000 MMU CELLS/CAPSULE PO SCH ×2 (07:39→20:45)
[2018-05-15] MEDS: HYDROchlorothiazide 12.5mg capsule PO SCH (07:39)
[2018-05-15] MEDS: hydrALAZINE 25 MG tablet PO SCH ×2 (07:40→20:46)
[2018-05-15] MEDS: amLODIPine 5mg tablet PO SCH (07:40)
[2018-05-15] MEDS: heparin, porcine 5000 units/ml vial SQ SCH ×2 (07:41→20:47)
[2018-05-15] MEDS: lactose-reduced food (Ensure Enlive) - 237ml bottle PO SCH ×3 (07:42→18:00)
[2018-05-15] MEDS: emollient combination-Eucerin 250 ML LOTION TP SCH (07:43)
[2018-05-15] MEDS ORDERED: amLODIPine 5mg tablet PO ONE (09:40)
[2018-05-15 11:00] VITALS: BP 117/69
[2018-05-15 15:00] VITALS: BP 124/77
[2018-05-15 18:00] VITALS: BP 133/72
[2018-05-15] MEDS: magnesium oxide 400mg tablet PO SCH (20:46)
[2018-05-15 22:00] VITALS: BP 124/72
[2018-05-16] MEDS: penicillin G potassium inj 4,000,000 UNIT in normal saline 100ml IV soln 100 ML IV SCH ×7 (00:02→23:59)
[2018-05-16 02:00] VITALS: BP 144/109
[2018-05-16] MEDS: hydrALAZINE 20mg/ml inj. IV PRN (02:12)
[2018-05-16 02:30] VITALS: BP 138/77
[2018-05-16] MEDS: HYDROcodone/acetaminophen 5mg/325mg tablet PO PRN ×4 (04:05→23:12)
[2018-05-16 07:00] VITALS: BP 138/73
[2018-05-16] MEDS: hydrALAZINE 25 MG tablet PO SCH ×2 (07:15→20:27)
[2018-05-16] MEDS: HYDROchlorothiazide 12.5mg capsule PO SCH (07:15)
[2018-05-16] MEDS: potassium chloride 10mEq ER tablet PO SCH (07:15)
[2018-05-16] MEDS: lactobacillus rhamnosus 10,000 MMU CELLS/CAPSULE PO SCH ×2 (07:15→20:27)
[2018-05-16] MEDS: amLODIPine 5mg tablet PO SCH (07:16)
[2018-05-16] MEDS: lisinopril 20mg tablet PO SCH (07:16)
[2018-05-16] MEDS: docusate sod 100mg capsule PO SCH ×2 (07:16→20:27)
[2018-05-16] MEDS: heparin, porcine 5000 units/ml vial SQ SCH ×2 (07:17→20:46)
[2018-05-16] MEDS: lactose-reduced food (Ensure Enlive) - 237ml bottle PO SCH ×3 (07:18→18:18)
[2018-05-16] MEDS: emollient combination-Eucerin 250 ML LOTION TP SCH (08:57)
[2018-05-16 11:00] VITALS: BP 107/61
[2018-05-16 15:00] VITALS: BP 118/63
[2018-05-16] MEDS: magnesium oxide 400mg tablet PO SCH (20:27)
[2018-05-16] MEDS: normal saline 1000ml 1,000 ML IV SCH (23:13)
[2018-05-17] MEDS: penicillin G potassium inj 4,000,000 UNIT in normal saline 100ml IV soln 100 ML IV SCH ×5 (04:31→21:29)
[2018-05-17] MEDS: HYDROcodone/acetaminophen 5mg/325mg tablet PO PRN ×3 (05:54→18:52)
[2018-05-17 06:00] VITALS: BP 131/76
[2018-05-17] MEDS: HYDROchlorothiazide 12.5mg capsule PO SCH (07:43)
[2018-05-17] MEDS: docusate sod 100mg capsule PO SCH ×2 (07:43→21:28)
[2018-05-17] MEDS: hydrALAZINE 25 MG tablet PO SCH ×2 (07:43→21:28)
[2018-05-17] MEDS: lisinopril 20mg tablet PO SCH (07:43)
[2018-05-17] MEDS: lactobacillus rhamnosus 10,000 MMU CELLS/CAPSULE PO SCH ×2 (07:43→21:28)
[2018-05-17] MEDS: potassium chloride 10mEq ER tablet PO SCH (07:43)
[2018-05-17] MEDS: amLODIPine 5mg tablet PO SCH (07:43)
[2018-05-17] MEDS: heparin, porcine 5000 units/ml vial SQ SCH ×2 (07:48→21:30)
[2018-05-17] MEDS: lactose-reduced food (Ensure Enlive) - 237ml bottle PO SCH ×3 (07:51→18:02)
[2018-05-17] MEDS: emollient combination-Eucerin 250 ML LOTION TP SCH (07:52)
[2018-05-17 11:00] VITALS: BP 112/67
[2018-05-17 15:00] VITALS: BP 86/57
[2018-05-17 17:25] VITALS: BP 131/77
[2018-05-17 19:00] VITALS: BP 127/79
[2018-05-17] MEDS: magnesium oxide 400mg tablet PO SCH (21:28)
[2018-05-17 23:00] VITALS: BP 112/68
[2018-05-18] MEDS: penicillin G potassium inj 4,000,000 UNIT in normal saline 100ml IV soln 100 ML IV SCH ×6 (00:46→20:44)
[2018-05-18] MEDS: HYDROcodone/acetaminophen 5mg/325mg tablet PO PRN ×3 (00:47→14:35)
[2018-05-18 03:00] VITALS: BP 114/64
[2018-05-18] MEDS: heparin, porcine 5000 units/ml vial SQ SCH ×2 (07:39→20:44)
[2018-05-18] MEDS: HYDROchlorothiazide 12.5mg capsule PO SCH (07:40)
[2018-05-18] MEDS: lactobacillus rhamnosus 10,000 MMU CELLS/CAPSULE PO SCH ×2 (07:40→20:43)
[2018-05-18] MEDS: potassium chloride 10mEq ER tablet PO SCH (07:40)
[2018-05-18] MEDS: docusate sod 100mg capsule PO SCH ×2 (07:40→20:43)
[2018-05-18] MEDS: amLODIPine 5mg tablet PO SCH (07:41)
[2018-05-18] MEDS: lisinopril 20mg tablet PO SCH (07:41)
[2018-05-18] MEDS: lactose-reduced food (Ensure Enlive) - 237ml bottle PO SCH ×3 (07:46→18:00)
[2018-05-18] MEDS: hydrALAZINE 25 MG tablet PO SCH ×2 (07:47→20:43)
[2018-05-18] MEDS: emollient combination-Eucerin 250 ML LOTION TP SCH (07:48)
[2018-05-18 12:34] VITALS: BP 112/54
[2018-05-18 15:00] VITALS: BP 117/70
[2018-05-18 19:00] VITALS: BP 119/66
[2018-05-18] MEDS: HYDROcodone/acetaminophen 10/325mg tab PO PRN (20:42)
[2018-05-18] MEDS: magnesium oxide 400mg tablet PO SCH (20:43)
[2018-05-18 23:00] VITALS: BP 130/75
[2018-05-18] MEDS: normal saline 1000ml 1,000 ML IV SCH (23:12)
[2018-05-19] VITALS (7 sets, daily range): BP systolic 109–141; BP diastolic 68–74
[2018-05-19] MEDS: penicillin G potassium inj 4,000,000 UNIT in normal saline 100ml IV soln 100 ML IV SCH ×6 (01:14→20:04)
[2018-05-19] MEDS: HYDROcodone/acetaminophen 10/325mg tab PO PRN ×4 (03:05→22:33)
[2018-05-19] MEDS: lactose-reduced food (Ensure Enlive) - 237ml bottle PO SCH ×3 (08:00→18:00)
[2018-05-19] MEDS: lisinopril 20mg tablet PO SCH (10:18)
[2018-05-19] MEDS: HYDROchlorothiazide 12.5mg capsule PO SCH (10:18)
[2018-05-19] MEDS: amLODIPine 5mg tablet PO SCH (10:20)
[2018-05-19] MEDS: lactobacillus rhamnosus 10,000 MMU CELLS/CAPSULE PO SCH ×2 (10:20→20:04)
[2018-05-19] MEDS: potassium chloride 10mEq ER tablet PO SCH (10:21)
[2018-05-19] MEDS: hydrALAZINE 25 MG tablet PO SCH ×2 (10:21→20:04)
[2018-05-19] MEDS: docusate sod 100mg capsule PO SCH ×2 (10:21→20:04)
[2018-05-19] MEDS: heparin, porcine 5000 units/ml vial SQ SCH ×2 (10:22→20:05)
[2018-05-19] MEDS: emollient combination-Eucerin 250 ML LOTION TP SCH (10:26)
[2018-05-19] MEDS: magnesium oxide 400mg tablet PO SCH (20:04)
[2018-05-20] MEDS: penicillin G potassium inj 4,000,000 UNIT in normal saline 100ml IV soln 100 ML IV SCH ×7 (01:24→20:40)
[2018-05-20 02:00] VITALS: BP 111/64
[2018-05-20] MEDS: HYDROcodone/acetaminophen 10/325mg tab PO PRN ×4 (04:58→23:05)
[2018-05-20 07:57] VITALS: BP 119/74
[2018-05-20] MEDS: docusate sod 100mg capsule PO SCH ×2 (08:00→20:00)
[2018-05-20] MEDS: amLODIPine 5mg tablet PO SCH (08:00)
[2018-05-20] MEDS: hydrALAZINE 25 MG tablet PO SCH ×2 (08:00→20:40)
[2018-05-20] MEDS: HYDROchlorothiazide 12.5mg capsule PO SCH (08:00)
[2018-05-20] MEDS: lisinopril 20mg tablet PO SCH (08:00)
[2018-05-20] MEDS: potassium chloride 10mEq ER tablet PO SCH (08:00)
[2018-05-20] MEDS: lactobacillus rhamnosus 10,000 MMU CELLS/CAPSULE PO SCH ×2 (08:00→20:36)
[2018-05-20] MEDS: heparin, porcine 5000 units/ml vial SQ SCH ×2 (08:01→20:00)
[2018-05-20] MEDS: lactose-reduced food (Ensure Enlive) - 237ml bottle PO SCH ×3 (08:02→19:03)
[2018-05-20] MEDS: emollient combination-Eucerin 250 ML LOTION TP SCH (08:02)
[2018-05-20 11:49] VITALS: BP 92/59
[2018-05-20 18:00] VITALS: BP 114/72
[2018-05-20] MEDS: magnesium oxide 400mg tablet PO SCH (20:40)
[2018-05-20] MEDS: penicillin V potassium 500mg tablet PO SCH (21:53)
[2018-05-20] MEDS: normal saline 1000ml 1,000 ML IV SCH (23:12)
[2018-05-20 23:20] VITALS: BP 126/76
[2018-05-21] MEDS: penicillin V potassium 500mg tablet PO SCH ×2 (02:53→09:58)
[2018-05-21] MEDS: HYDROcodone/acetaminophen 10/325mg tab PO PRN ×4 (05:06→23:34)
[2018-05-21 06:00] VITALS: BP 113/62
[2018-05-21] MEDS: lactose-reduced food (Ensure Enlive) - 237ml bottle PO SCH ×3 (08:00→18:51)
[2018-05-21] MEDS: amLODIPine 5mg tablet PO SCH (08:00)
[2018-05-21] MEDS: HYDROchlorothiazide 12.5mg capsule PO SCH (08:00)
[2018-05-21] MEDS: hydrALAZINE 25 MG tablet PO SCH ×2 (08:00→19:58)
[2018-05-21] MEDS: emollient combination-Eucerin 250 ML LOTION TP SCH (08:00)
[2018-05-21] MEDS: lisinopril 20mg tablet PO SCH (08:00)
[2018-05-21] MEDS: potassium chloride 10mEq ER tablet PO SCH (09:58)
[2018-05-21] MEDS: docusate sod 100mg capsule PO SCH ×2 (09:58→19:56)
[2018-05-21] MEDS: lactobacillus rhamnosus 10,000 MMU CELLS/CAPSULE PO SCH ×2 (09:58→19:56)
[2018-05-21 10:00] VITALS: BP 111/68
[2018-05-21] MEDS: heparin, porcine 5000 units/ml vial SQ SCH ×2 (10:09→19:56)
[2018-05-21] MEDS: penicillin G potassium inj 4,000,000 UNIT in normal saline 100ml IV soln 100 ML IV SCH ×3 (16:14→23:34)
[2018-05-21 18:00] VITALS: BP 108/55
[2018-05-21] MEDS: normal saline 1000ml 1,000 ML IV SCH (19:48)
[2018-05-21] MEDS: magnesium oxide 400mg tablet PO SCH (19:58)
[2018-05-22] MEDS: penicillin G potassium inj 4,000,000 UNIT in normal saline 100ml IV soln 100 ML IV SCH ×5 (03:53→19:57)
[2018-05-22] MEDS: HYDROcodone/acetaminophen 10/325mg tab PO PRN ×4 (05:20→22:34)
[2018-05-22 05:41] LABS: BASOPHILS % (AUTO) 0.4 % (0-1); EOSINOPHILS # (AUTO) 0.5 X10'3 (0-0.9); EOSINOPHILS % (AUTO) 5.2 % (0-6); HEMATOCRIT 35.4 % (42.0-52.0); LYMPHOCYTES # (AUTO) 1.8 X10'3 (1.1-4.8); LYMPHOCYTES % (AUTO) 19.4 % (21-51); MEAN CORPUSCULAR HEMOGLOBIN 32.6 PG (27.0-31.0); MEAN PLATELET VOLUME 7.8 FL (7.4-10.4); MONOCYTES # (AUTO) 0.8 X10'3 (0-0.9); MONOCYTES % (AUTO) 8.7 % (2-12); NEUTROPHILS # (AUTO) 6.1 X10'3 (1.8-7.7); NEUTROPHILS % (AUTO) 66.3 % (42-75); PLATELET COUNT 382 X10'3 (140-440); RED BLOOD COUNT 3.68 X10'6 (4.70-6.10); RED CELL DISTRIBUTION WIDTH 14.1 % (11.5-14.5); WHITE BLOOD COUNT 9.2 X10'3 (4.5-11.0)
[2018-05-22 06:00] VITALS: BP 127/74
[2018-05-22 06:09] LABS: ALANINE AMINOTRANSFERASE 51 U/L (12-78); ALBUMIN 2.2 G/DL (3.4-5.0); ALBUMIN/GLOBULIN RATIO 0.5 (1.1-1.5); ALKALINE PHOSPHATASE 65 IU/L (46-116); ANION GAP 9 (8-16); ASPARTATE AMINO TRANSFERASE 27 U/L (10-37); BILIRUBIN,TOTAL 0.4 MG/DL (0.1-1.0); BLOOD UREA NITROGEN 26 MG/DL (7-18); BUN/CREATININE RATIO 34.2 (5.4-32.0); CHLORIDE 103 MMOL/L (99-107); CREATININE 0.76 MG/DL (0.60-1.10); GLUCOSE 104 MG/DL (70-104); POTASSIUM 4.1 MMOL/L (3.5-5.1); SODIUM 136 MMOL/L (135-145); TOTAL CARBON DIOXIDE 24.2 MMOL/L (24-32); TOTAL PROTEIN 6.4 G/DL (6.4-8.2); eGFR > 90 ML/MIN
[2018-05-22] MEDS: amLODIPine 5mg tablet PO SCH (07:32)
[2018-05-22] MEDS: lisinopril 20mg tablet PO SCH (07:32)
[2018-05-22] MEDS: potassium chloride 10mEq ER tablet PO SCH (07:33)
[2018-05-22] MEDS: HYDROchlorothiazide 12.5mg capsule PO SCH (07:33)
[2018-05-22] MEDS: hydrALAZINE 25 MG tablet PO SCH ×2 (07:33→19:58)
[2018-05-22] MEDS: docusate sod 100mg capsule PO SCH ×2 (07:33→19:58)
[2018-05-22] MEDS: lactobacillus rhamnosus 10,000 MMU CELLS/CAPSULE PO SCH ×2 (07:33→19:58)
[2018-05-22] MEDS: heparin, porcine 5000 units/ml vial SQ SCH ×2 (07:35→19:58)
[2018-05-22] MEDS: emollient combination-Eucerin 250 ML LOTION TP SCH (07:35)
[2018-05-22] MEDS: lactose-reduced food (Ensure Enlive) - 237ml bottle PO SCH ×3 (08:00→18:00)
[2018-05-22 10:00] VITALS: BP 104/61
[2018-05-22 17:00] VITALS: BP 124/74
[2018-05-22] MEDS: magnesium oxide 400mg tablet PO SCH (19:58)
[2018-05-22 22:00] VITALS: BP 130/73
[2018-05-22] MEDS: normal saline 1000ml 1,000 ML IV SCH (23:12)
[2018-05-23] MEDS: penicillin G potassium inj 4,000,000 UNIT in normal saline 100ml IV soln 100 ML IV SCH ×6 (00:04→19:52)
[2018-05-23] MEDS: HYDROcodone/acetaminophen 10/325mg tab PO PRN ×5 (04:07→22:24)
[2018-05-23 06:00] VITALS: BP 130/77
[2018-05-23] MEDS: lisinopril 20mg tablet PO SCH (07:42)
[2018-05-23] MEDS: heparin, porcine 5000 units/ml vial SQ SCH ×2 (07:42→19:48)
[2018-05-23] MEDS: amLODIPine 5mg tablet PO SCH (07:42)
[2018-05-23] MEDS: docusate sod 100mg capsule PO SCH ×2 (07:42→19:47)
[2018-05-23] MEDS: HYDROchlorothiazide 12.5mg capsule PO SCH (07:42)
[2018-05-23] MEDS: lactobacillus rhamnosus 10,000 MMU CELLS/CAPSULE PO SCH ×2 (07:42→19:47)
[2018-05-23] MEDS: potassium chloride 10mEq ER tablet PO SCH (07:42)
[2018-05-23] MEDS: hydrALAZINE 25 MG tablet PO SCH ×2 (07:42→19:47)
[2018-05-23] MEDS: lactose-reduced food (Ensure Enlive) - 237ml bottle PO SCH ×3 (07:54→18:00)
[2018-05-23] MEDS: emollient combination-Eucerin 250 ML LOTION TP SCH (07:54)
[2018-05-23 18:00] VITALS: BP 113/72
[2018-05-23 22:00] VITALS: BP 120/79
[2018-05-23] MEDS: magnesium oxide 400mg tablet PO SCH (22:23)
[2018-05-24] MEDS: penicillin G potassium inj 4,000,000 UNIT in normal saline 100ml IV soln 100 ML IV SCH ×4 (00:56→11:56)
[2018-05-24] MEDS: HYDROcodone/acetaminophen 10/325mg tab PO PRN ×6 (03:03→23:49)
[2018-05-24] MEDS: normal saline 1000ml 1,000 ML IV SCH (04:07)
[2018-05-24 06:00] VITALS: BP 134/83
[2018-05-24] MEDS: lisinopril 20mg tablet PO SCH (07:29)
[2018-05-24] MEDS: amLODIPine 5mg tablet PO SCH (07:30)
[2018-05-24] MEDS: HYDROchlorothiazide 12.5mg capsule PO SCH (07:30)
[2018-05-24] MEDS: lactobacillus rhamnosus 10,000 MMU CELLS/CAPSULE PO SCH ×2 (07:30→19:47)
[2018-05-24] MEDS: docusate sod 100mg capsule PO SCH ×2 (07:30→19:49)
[2018-05-24] MEDS: hydrALAZINE 25 MG tablet PO SCH ×2 (07:30→19:49)
[2018-05-24] MEDS: potassium chloride 10mEq ER tablet PO SCH (07:30)
[2018-05-24] MEDS: heparin, porcine 5000 units/ml vial SQ SCH ×2 (07:35→19:47)
[2018-05-24] MEDS: emollient combination-Eucerin 250 ML LOTION TP SCH (07:41)
[2018-05-24] MEDS: lactose-reduced food (Ensure Enlive) - 237ml bottle PO SCH ×3 (08:00→18:00)
[2018-05-24 10:00] VITALS: BP 134/63
[2018-05-24] MEDS: magnesium oxide 400mg tablet PO SCH (19:48)
[2018-05-24 20:00] VITALS: BP 117/63
[2018-05-25] VITALS: BP 121/78
[2018-05-25] MEDS: HYDROcodone/acetaminophen 10/325mg tab PO PRN ×5 (03:42→21:24)
[2018-05-25 06:00] VITALS: BP 117/70
[2018-05-25] MEDS: HYDROchlorothiazide 12.5mg capsule PO SCH (07:59)
[2018-05-25] MEDS: amLODIPine 5mg tablet PO SCH (07:59)
[2018-05-25] MEDS: docusate sod 100mg capsule PO SCH ×2 (07:59→20:27)
[2018-05-25] MEDS: lactobacillus rhamnosus 10,000 MMU CELLS/CAPSULE PO SCH ×2 (07:59→20:26)
[2018-05-25] MEDS: lisinopril 20mg tablet PO SCH (07:59)
[2018-05-25] MEDS: lactose-reduced food (Ensure Enlive) - 237ml bottle PO SCH ×3 (08:00→18:43)
[2018-05-25] MEDS: potassium chloride 10mEq ER tablet PO SCH (08:00)
[2018-05-25] MEDS: emollient combination-Eucerin 250 ML LOTION TP SCH (08:00)
[2018-05-25] MEDS: hydrALAZINE 25 MG tablet PO SCH ×2 (08:00→20:27)
[2018-05-25] MEDS: heparin, porcine 5000 units/ml vial SQ SCH ×2 (08:01→20:27)
[2018-05-25 09:09] LABS: BASOPHILS % (AUTO) 0.6 % (0-1); EOSINOPHILS # (AUTO) 0.5 X10'3 (0-0.9); EOSINOPHILS % (AUTO) 6.4 % (0-6); HEMATOCRIT 37.7 % (42.0-52.0); HEMOGLOBIN 12.9 g/dl (14.0-17.9); LYMPHOCYTES # (AUTO) 1.8 X10'3 (1.1-4.8); LYMPHOCYTES % (AUTO) 22.9 % (21-51); MEAN CORPUSCULAR HEMOGLOBIN 32.5 PG (27.0-31.0); MEAN CORPUSCULAR HGB CONC 34.2 % (33.0-36.5); MEAN CORPUSCULAR VOLUME 95.1 FL (78-98); MEAN PLATELET VOLUME 7.8 FL (7.4-10.4); MONOCYTES # (AUTO) 0.5 X10'3 (0-0.9); MONOCYTES % (AUTO) 6.3 % (2-12); NEUTROPHILS # (AUTO) 5.1 X10'3 (1.8-7.7); NEUTROPHILS % (AUTO) 63.8 % (42-75); PLATELET COUNT 484 X10'3 (140-440); RED BLOOD COUNT 3.96 X10'6 (4.70-6.10); RED CELL DISTRIBUTION WIDTH 14.3 % (11.5-14.5); WHITE BLOOD COUNT 8.1 X10'3 (4.5-11.0)
[2018-05-25 10:00] VITALS: BP 94/61
[2018-05-25 18:00] VITALS: BP 110/67
[2018-05-25] MEDS: magnesium oxide 400mg tablet PO SCH (20:27)
[2018-05-25 22:00] VITALS: BP 120/73
[2018-05-26] MEDS: HYDROcodone/acetaminophen 10/325mg tab PO PRN ×3 (01:24→21:15)
[2018-05-26 06:00] VITALS: BP 111/72
[2018-05-26] MEDS: lactose-reduced food (Ensure Enlive) - 237ml bottle PO SCH ×3 (08:19→18:00)
[2018-05-26] MEDS: potassium chloride 10mEq ER tablet PO SCH (08:23)
[2018-05-26] MEDS: docusate sod 100mg capsule PO SCH ×2 (08:23→20:18)
[2018-05-26] MEDS: lactobacillus rhamnosus 10,000 MMU CELLS/CAPSULE PO SCH ×2 (08:23→20:18)
[2018-05-26] MEDS: HYDROchlorothiazide 12.5mg capsule PO SCH (08:23)
[2018-05-26] MEDS: hydrALAZINE 25 MG tablet PO SCH ×2 (08:23→20:18)
[2018-05-26] MEDS: heparin, porcine 5000 units/ml vial SQ SCH ×2 (08:24→20:18)
[2018-05-26 10:00] VITALS: BP 113/62
[2018-05-26] MEDS: HYDROcodone/acetaminophen 5mg/325mg tablet PO PRN ×2 (10:41→16:19)
[2018-05-26] MEDS: lisinopril 20mg tablet PO SCH (16:18)
[2018-05-26] MEDS: amLODIPine 5mg tablet PO SCH (16:19)
[2018-05-26] MEDS: emollient combination-Eucerin 250 ML LOTION TP SCH (16:20)
[2018-05-26] MEDS: magnesium oxide 400mg tablet PO SCH (20:18)
[2018-05-26 20:34] VITALS: BP 110/66
[2018-05-26 22:00] VITALS: BP 120/70
[2018-05-26] MEDS: normal saline 1000ml 1,000 ML IV SCH (23:12)
[2018-05-27] MEDS: HYDROcodone/acetaminophen 10/325mg tab PO PRN ×5 (01:54→20:12)
[2018-05-27 05:00] VITALS: BP 130/72
[2018-05-27] MEDS: HYDROchlorothiazide 12.5mg capsule PO SCH (08:00)
[2018-05-27] MEDS: hydrALAZINE 25 MG tablet PO SCH ×2 (08:00→19:34)
[2018-05-27] MEDS: lactose-reduced food (Ensure Enlive) - 237ml bottle PO SCH ×3 (08:00→18:00)
[2018-05-27] MEDS: amLODIPine 5mg tablet PO SCH (08:00)
[2018-05-27] MEDS: lisinopril 20mg tablet PO SCH (08:00)
[2018-05-27] MEDS: heparin, porcine 5000 units/ml vial SQ SCH ×2 (09:19→19:34)
[2018-05-27] MEDS: potassium chloride 10mEq ER tablet PO SCH (09:20)
[2018-05-27] MEDS: docusate sod 100mg capsule PO SCH ×2 (09:20→19:34)
[2018-05-27] MEDS: emollient combination-Eucerin 250 ML LOTION TP SCH (09:20)
[2018-05-27] MEDS: lactobacillus rhamnosus 10,000 MMU CELLS/CAPSULE PO SCH ×2 (09:20→19:34)
[2018-05-27 10:00] VITALS: BP 108/60
[2018-05-27 18:00] VITALS: BP 106/68
[2018-05-27] MEDS: magnesium oxide 400mg tablet PO SCH (20:12)
[2018-05-27 22:00] VITALS: BP 131/77
[2018-05-28] MEDS: HYDROcodone/acetaminophen 10/325mg tab PO PRN ×5 (00:16→20:18)
[2018-05-28 06:37] VITALS: BP 109/57
[2018-05-28] MEDS: docusate sod 100mg capsule PO SCH ×2 (07:20→20:20)
[2018-05-28] MEDS: amLODIPine 5mg tablet PO SCH (07:20)
[2018-05-28] MEDS: hydrALAZINE 25 MG tablet PO SCH ×2 (07:20→20:19)
[2018-05-28] MEDS: potassium chloride 10mEq ER tablet PO SCH (07:20)
[2018-05-28] MEDS: HYDROchlorothiazide 12.5mg capsule PO SCH (07:20)
[2018-05-28] MEDS: heparin, porcine 5000 units/ml vial SQ SCH ×2 (07:20→20:25)
[2018-05-28] MEDS: lisinopril 20mg tablet PO SCH (07:20)
[2018-05-28] MEDS: emollient combination-Eucerin 250 ML LOTION TP SCH (07:20)
[2018-05-28] MEDS: lactobacillus rhamnosus 10,000 MMU CELLS/CAPSULE PO SCH ×2 (07:20→20:19)
[2018-05-28] MEDS: lactose-reduced food (Ensure Enlive) - 237ml bottle PO SCH ×3 (07:54→17:44)
[2018-05-28] MEDS ORDERED: EMOL200L TP (10:48)
[2018-05-28] MEDS ORDERED: LACT-237 PO (10:48)
[2018-05-28] MEDS ORDERED: LACT1CAP26 PO (10:48)
[2018-05-28] MEDS ORDERED: LISI-600 PO (10:48)
[2018-05-28] MEDS ORDERED: NOR5T PO (10:48)
[2018-05-28 11:15] VITALS: BP 102/65
[2018-05-28 18:00] VITALS: BP 117/69
[2018-05-28] MEDS: magnesium oxide 400mg tablet PO SCH (20:20)
[2018-05-28 22:00] VITALS: BP 126/75
[2018-05-28] MEDS: normal saline 1000ml 1,000 ML IV SCH (23:12)
[2018-05-29] MEDS: HYDROcodone/acetaminophen 10/325mg tab PO PRN ×6 (00:12→22:16)
[2018-05-29 05:00] VITALS: BP 118/69
[2018-05-29] MEDS: hydrALAZINE 25 MG tablet PO SCH ×2 (08:22→20:55)
[2018-05-29] MEDS: docusate sod 100mg capsule PO SCH ×2 (08:22→20:51)
[2018-05-29] MEDS: lactobacillus rhamnosus 10,000 MMU CELLS/CAPSULE PO SCH ×2 (08:22→20:51)
[2018-05-29] MEDS: potassium chloride 10mEq ER tablet PO SCH (08:23)
[2018-05-29] MEDS: amLODIPine 5mg tablet PO SCH (08:23)
[2018-05-29] MEDS: HYDROchlorothiazide 12.5mg capsule PO SCH (08:23)
[2018-05-29] MEDS: lactose-reduced food (Ensure Enlive) - 237ml bottle PO SCH ×4 (08:23→20:57)
[2018-05-29] MEDS: lisinopril 20mg tablet PO SCH (08:23)
[2018-05-29] MEDS: heparin, porcine 5000 units/ml vial SQ SCH ×2 (08:24→20:51)
[2018-05-29] MEDS: emollient combination-Eucerin 250 ML LOTION TP SCH (08:25)
[2018-05-29 10:00] VITALS: BP 117/67
[2018-05-29 18:00] VITALS: BP 108/70
[2018-05-29] MEDS: magnesium oxide 400mg tablet PO SCH (20:51)
[2018-05-29 20:57] VITALS: BP 111/61
[2018-05-29 22:00] VITALS: BP 115/70
[2018-05-30] MEDS: HYDROcodone/acetaminophen 10/325mg tab PO PRN ×5 (02:31→20:05)
[2018-05-30 05:00] VITALS: BP 122/68
[2018-05-30] MEDS: amLODIPine 5mg tablet PO SCH (08:06)
[2018-05-30] MEDS: hydrALAZINE 25 MG tablet PO SCH ×2 (08:06→20:00)
[2018-05-30] MEDS: HYDROchlorothiazide 12.5mg capsule PO SCH (08:06)
[2018-05-30] MEDS: lactobacillus rhamnosus 10,000 MMU CELLS/CAPSULE PO SCH ×2 (08:06→20:05)
[2018-05-30] MEDS: lisinopril 20mg tablet PO SCH (08:06)
[2018-05-30] MEDS: heparin, porcine 5000 units/ml vial SQ SCH ×2 (08:06→20:07)
[2018-05-30] MEDS: docusate sod 100mg capsule PO SCH ×2 (08:06→20:05)
[2018-05-30] MEDS: potassium chloride 10mEq ER tablet PO SCH (08:06)
[2018-05-30] MEDS: emollient combination-Eucerin 250 ML LOTION TP SCH (08:10)
[2018-05-30 10:00] VITALS: BP 99/57
[2018-05-30] MEDS: lactose-reduced food (Ensure Enlive) - 237ml bottle PO SCH ×2 (13:00→18:00)
[2018-05-30 19:00] VITALS: BP 91/60
[2018-05-30] MEDS: magnesium oxide 400mg tablet PO SCH (20:09)
[2018-05-30 22:00] VITALS: BP 108/55
[2018-05-30] MEDS: normal saline 1000ml 1,000 ML IV SCH (23:12)
[2018-05-31] MEDS: HYDROcodone/acetaminophen 10/325mg tab PO PRN ×6 (00:02→21:30)
[2018-05-31 07:00] VITALS: BP 100/50
[2018-05-31] MEDS: potassium chloride 10mEq ER tablet PO SCH (07:31)
[2018-05-31] MEDS: emollient combination-Eucerin 250 ML LOTION TP SCH (07:31)
[2018-05-31] MEDS: lactobacillus rhamnosus 10,000 MMU CELLS/CAPSULE PO SCH ×2 (07:31→20:29)
[2018-05-31] MEDS: docusate sod 100mg capsule PO SCH ×2 (07:32→20:29)
[2018-05-31] MEDS: amLODIPine 5mg tablet PO SCH (07:32)
[2018-05-31 07:35] VITALS: BP 132/76
[2018-05-31] MEDS: heparin, porcine 5000 units/ml vial SQ SCH ×2 (07:38→20:30)
[2018-05-31] MEDS: hydrALAZINE 25 MG tablet PO SCH ×2 (07:39→20:29)
[2018-05-31] MEDS: lisinopril 20mg tablet PO SCH (07:39)
[2018-05-31] MEDS: HYDROchlorothiazide 12.5mg capsule PO SCH (07:39)
[2018-05-31] MEDS: lactose-reduced food (Ensure Enlive) - 237ml bottle PO SCH ×3 (08:00→18:55)
[2018-05-31 11:00] VITALS: BP 128/77
[2018-05-31 18:00] VITALS: BP 107/71
[2018-05-31] MEDS: magnesium oxide 400mg tablet PO SCH (20:29)
[2018-06-01] MEDS: HYDROcodone/acetaminophen 10/325mg tab PO PRN ×6 (02:54→23:05)
[2018-06-01 05:00] VITALS: BP 114/66
[2018-06-01] MEDS: hydrALAZINE 25 MG tablet PO SCH ×2 (07:27→19:08)
[2018-06-01] MEDS: docusate sod 100mg capsule PO SCH ×2 (07:33→19:08)
[2018-06-01] MEDS: potassium chloride 10mEq ER tablet PO SCH (07:33)
[2018-06-01] MEDS: HYDROchlorothiazide 12.5mg capsule PO SCH (07:33)
[2018-06-01] MEDS: amLODIPine 5mg tablet PO SCH (07:33)
[2018-06-01] MEDS: lactobacillus rhamnosus 10,000 MMU CELLS/CAPSULE PO SCH ×2 (07:33→19:07)
[2018-06-01] MEDS: lisinopril 20mg tablet PO SCH (07:33)
[2018-06-01] MEDS: heparin, porcine 5000 units/ml vial SQ SCH ×2 (07:34→19:08)
[2018-06-01] MEDS: emollient combination-Eucerin 250 ML LOTION TP SCH (07:38)
[2018-06-01] MEDS: lactose-reduced food (Ensure Enlive) - 237ml bottle PO SCH ×3 (07:39→18:43)
[2018-06-01 17:00] VITALS: BP 105/61
[2018-06-01] MEDS: magnesium oxide 400mg tablet PO SCH (19:07)
[2018-06-01 22:00] VITALS: BP 103/62
[2018-06-01] MEDS: normal saline 1000ml 1,000 ML IV SCH (23:05)
[2018-06-02] MEDS: HYDROcodone/acetaminophen 10/325mg tab PO PRN ×2 (03:19→07:16)
[2018-06-02 05:00] VITALS: BP 106/61
[2018-06-02 07:00] VITALS: BP 118/64
[2018-06-02] MEDS: lactobacillus rhamnosus 10,000 MMU CELLS/CAPSULE PO SCH (07:15)
[2018-06-02] MEDS: potassium chloride 10mEq ER tablet PO SCH (07:15)
[2018-06-02] MEDS: amLODIPine 5mg tablet PO SCH (07:16)
[2018-06-02] MEDS: HYDROchlorothiazide 12.5mg capsule PO SCH (07:16)
[2018-06-02] MEDS: lisinopril 20mg tablet PO SCH (07:16)
[2018-06-02] MEDS: docusate sod 100mg capsule PO SCH (07:16)
[2018-06-02] MEDS: heparin, porcine 5000 units/ml vial SQ SCH (07:16)
[2018-06-02] MEDS: lactose-reduced food (Ensure Enlive) - 237ml bottle PO SCH (08:00)
[2018-06-02] MEDS: hydrALAZINE 25 MG tablet PO SCH (08:00)
[2018-06-02 10:00] VITALS: BP 97/67
== END 2018-06-02 11:35 | disposition home health service (06) | DRG 871 ==
LOC: ER 11:41 → ED HOLD 17:08 → CMPBEDREQ 20:19 → PCU 3S 20:20 → ORTHO 4S 05-20 02:10
PROVIDERS: ADMIT Family Medicine; ATTEND Family Medicine
DX: A41.89 Other specified sepsis (principal); I21.A1 Myocardial infarction type 2; G92 Toxic encephalopathy; N39.0 Urinary tract infection, site not specified; E44.0 Moderate protein-calorie malnutrition; M62.82 Rhabdomyolysis; M25.551 Pain in right hip; E87.6 Hypokalemia; I10 Essential (primary) hypertension; B95.2 Enterococcus as the cause of diseases classified elsewhere; L89.210 Pressure ulcer of right hip, unstageable; E11.9 Type 2 diabetes mellitus without complications; E78.00 Pure hypercholesterolemia, unspecified; E78.5 Hyperlipidemia, unspecified; G89.29 Other chronic pain; M54.2 Cervicalgia; M54.9 Dorsalgia, unspecified; Z68.30 Body mass index [BMI] 30.0-30.9, adult; Z23 Encounter for immunization
CPT/HCPCS: 36415; 70450; 71045; 73502; 76937; 80048; 80053; 80202; 80305; 80320; 80329; 81001; 82140; 82550; 82948; 83036; 83605; 83735; 83874; 84132; 84484; 85025; 85610; 85730; 87040; 87070; 87077; 87088; 93005; 93306; 96361; 96365; 96375; 97110; 97116; 97162; 97164; 97530; 99285; A4649; A6196; A6209; A6212; A6213; A6258; A6449; A9270; C1758; J0360; J0696; J1644; J2310; J2540; J3370; J3480; J3490; J7030

== ENCOUNTER → 2024-01-25 | Outpatient (CLI) | payer MEDICARE ==
[~2024-01-25] MED LIST: AMLO5TAB4 PO; DONE5TAB7 PO; LEVO50TA66 PO; LISI20TA28 PO; PANT-47 PO
[2024-01-25 18:26] LABS: BILIRUBIN,URINE NEGATIVE (Neg); CLARITY,URINE CLEAR (Clear); COLOR,URINE YELLOW (Yellow); GLUCOSE, URINE NEGATIVE (Neg); KETONES,URINE NEGATIVE (Neg); LEUKOCYTE ESTERASE ,URINE MODERATE (Neg); NITRITES, URINE NEGATIVE (Neg); OCCULT BLOOD,URINE TRACE-INTACT (Neg); PROTEIN,URINE TRACE mg/dl (Neg)
[2024-01-25 18:29] LABS: UA COLLECTION TYPE NON-SPECIFIED
[2024-01-25 18:33] LABS: WBC,URINE 50-100 /HPF (0-4)
[2024-01-25 18:34] LABS: BACTERIA,URINE 2+ /HPF (Neg); MUCUS STRANDS NONE SEEN /LPF (Neg); SQUAMOUS EPITHELIAL CELL,UR FEW /LPF (FEW); WBC CLUMPS,URINE FEW /HPF (NEGATIVE)
== END | disposition home or self-care (01) ==
LOC: LAB SPEC 17:45
PROVIDERS: ATTEND General Practice
DX: N39.0 Urinary tract infection, site not specified (principal)
CPT/HCPCS: 81001; 87077; 87088; 87186